=== PATIENT | male | born 1970 | race Caucasian/White ===

== ENCOUNTER 2021-02-13 15:04 | Inpatient (IN) ==
[2021-02-13] MEDS ORDERED: methylPREDNISolone 125 MG/2 ML VIAL IV STA (15:07)
[2021-02-13] MEDS ORDERED: MAGNESIUM SULFATE / D5W 1 GM/100 ML BAG IV STA (15:08)
[2021-02-13] MEDS ORDERED: ALBUT/IPRATROP 3MG/0.5MG NEB 3 ML VIAL NEB ONE (15:09)
[2021-02-13] MEDS ORDERED: ACETAMINOPHEN 1,000 MG/100 ML VIAL IV STA (15:12)
[2021-02-13] MEDS ORDERED: IPRATROPIUM BROMIDE NEB SOLN 0.02% 2.5 ML VIAL INH SCH ×2 (15:15→19:00)
[2021-02-13] MEDS ORDERED: LEVALBUTEROL 1.25MG/0.5ML NEB INH SCH ×2 (15:15→19:00)
[2021-02-13 15:28] LABS: Basophils % (auto) 1.1 %; Eosinophils # (auto) 0.35 K/uL (0-0.5); Eosinophils % (auto) 3.9 %; Hematocrit (blood only) 49.2 % (42-52); Hemoglobin 17.7 g/dL (14.0-18.0); Immature Granulocytes # (auto) 0.03 K/uL (0.00-0.02); Immature Granulocytes % (auto) 0.3 %; Lymphocytes # (auto) 4.44 K/uL (1.2-3.4); Lymphocytes % (auto) 49.7 %; Mean Corpuscular Hemoglobin 31.3 pg (25-34); Mean Corpuscular Volume 86.9 fL (80-100); Mean Platelet Volume 9.9 fL (7.4-10.4); Monocytes % (auto) 4.5 %; Neutrophils # (auto) 3.61 K/uL (1.4-6.5); Neutrophils % (auto) 40.5 %; Platelet Count 411 K/uL (130-400); RDW Standard Deviation 38.1 fL (36.4-46.3); Red Blood Count 5.66 M/uL (4.7-6.1); White Blood Count 8.93 K/uL (4.8-10.8)
[2021-02-13] MEDS ORDERED: levoFLOXacin/D5W 750 MG/150 ML BAG IV STA (15:28)
[2021-02-13] MEDS ORDERED: PIPERACILL/TAZOBAC CONSULT ACTIVE PRN (15:28)
[2021-02-13] MEDS ORDERED: PIPERACILLIN/TAZOBACTAM 4.5 GM in DEXTROSE 5% 100 ML IV ONE (15:28)
[2021-02-13] MEDS ORDERED: PIPERACILLIN/TAZOBACTAM 4.5 GM/120ML D5W IV ONE (15:36)
[2021-02-13 15:44] LABS: Partial Thromboplastin Ratio 0.9; Partial Thromboplastin Time 22.8 Seconds (21.0-31.0)
--- NOTE | 2021-02-13 15:44 | XRay Report ---
XR chest 1V portable CLINICAL HISTORY: Chest Pain COMPARISON STUDY: October 22, 2020 FINDINGS: No pneumothorax. No pleural effusion. Interval development of ill-defined opacity is within right lower lung which might represent atelecta sis or infiltrates. Cardiomediastinal silhouette is within normal limits in size. No significant pulmonary vascular congestion.. Osseous structures: unremarkable. Previous seen osseous deformities within right hemithorax are no l onger seen. IMPRESSION: 1. Ill-defined opacity at the right lower lung which could represent atelectasis or pneumonia. Short -term follow-up with PA and lateral chest radiograph in 4-6 weeks is recommended to document resoluti on. ACT 112: Positive. There are findings on this exam that require communication between the performing entity and the patient following Patient Test Result Information Act ([place] Act 112) guidelines. The above report was generated using voice recognition software. It may contain grammatical, syntax o r spelling errors. Electronically signed by: Daija Rojas DO 02/13/2021 3:43 PM
[2021-02-13 15:52] LABS: Alanine Aminotransferase 25 U/L (12-78); Albumin Level 4.3 gm/dl (3.4-5.0); Aspartate Aminotransferase 17 U/L (15-37); BUN Creatinine Ratio 12.6 (10-20); Blood Urea Nitrogen 19 mg/dl (7-18); Carbon Dioxide 31 mmol/L (21-32); Chloride 103 mmol/L (98-107); Est GFR (African American) 62.5 ml/min; Est GFR (Non-African American) 53.9 ml/min; Glucose 148 mg/dl (70-99); Lipase 208 U/L (73-393); Potassium 3.6 mmol/L (3.5-5.1); Sodium 138 mmol/L (136-145)
[2021-02-13 15:57] LABS: Albumin Globulin Ratio 1.3 (0.9-2); Alkaline Phosphatase 64 U/L (45-117); Bilirubin,Total 0.8 mg/dl (0.2-1); Creatine Kinase 131 U/L (39-308); Creatine Kinase MB 1.3 ng/ml (0.5-3.6); Globulin 3.2 gm/dl (2.5-4.0); Total Protein 7.5 gm/dl (6.4-8.2); Troponin I < 0.015 ng/ml (0-0.045)
[2021-02-13 15:58] LABS: Base Excess ABG -0.9 mEq/L (-9-1.8); HCO3 ABG 26 mmol/L (19-24); Oxygen Saturation ABG 99.7 % (90-95); PCO2 ABG 49 mmHg (35-46); PO2 ABG 249 mmHg (80-95); pH ABG 7.33 (7.35-7.45)
[2021-02-13 15:59] LABS: Allen Test POS (Pos)
[2021-02-13] MEDS ORDERED: SODIUM CHLORIDE 0.9% 1000ML 1,000 ML IV ONE (16:05)
[2021-02-13] MEDS ORDERED: diphenhydrAMINE 50 MG/ML VIAL IV STA (16:49)
[2021-02-13] MEDS ORDERED: FAMOTIDINE 20 MG in SYRINGE 3 ML IV STA (16:49)
[2021-02-13] MEDS ORDERED: FAMOTIDINE 20MG IV PUSH 20 MG/5 ML SYR IV STA (16:51)
[2021-02-13] MEDS ORDERED: FAMOTIDINE 20MG/5ML IV PUSH IV ONE (16:52)
--- NOTE | 2021-02-13 17:06 | History & Physical Report ---
Date of Service February 13, 2021 Assessment & Plan (1) Asthma with severe exacerbation: Given Solu-Medrol 125 mg IV in ED. Solu-Medrol 60 mg IV every 6 hours Duonebs every 4 hours while awake and every 2 hours when necessary. Continue loratadine 10 mg p.o. 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 Wright. His symptoms have worsened considerably since he moved into a new house 2 years ago. Would likely benefit from allergy testing. Have available Benadryl 25 mg IV every 4 hours as needed Present on Admission?: Yes (2) Renal insufficiency: Creatinine 1.50 upon admission. Order urinalysis Placed on NSS at 125 mils per hour Repeat laboratories in a.m. Present on Admission?: Yes (3) Mediastinal lymphadenopathy: Mediastinal and hilar lymphadenopathy on previous CTs- We will order ESR, CRYS, ANCA, HALIE level and if creatinine does not improve significantly, could order anti-GBM. Present on Admission?: Yes (4) Hilar lymphadenopathy: (5) Abnormal CT scan of lung: History of Present Illness Chief Complaint: The patient presents to the emergency department with complaint of worsening shortness of breath for the past several days Primary Care Provider: Patti Cárdenas MD The patient is a 50-year-old male with a past medical history including asthma, abnormal lung CT scan, hearing loss, rhinitis who presents with symptoms of severe shortness of breath not responsive to prednisone. In the emergency department, he was acutely short of breath, was placed on BiPAP initially, but had to take it off because it was too much pressure. After removing the BiPAP and having received Solu-Medrol 125 IV along with DuoNebs, patient was satting in the mid 90s on nasal cannula and more comfortable. Allergies Allergy/AdvReac Type Severity Reaction Status Date / Time No Known Drug Allergies Allergy Verified 01/20/21 13:55 lam Allergy Unknown Rash Uncoded 01/20/21 13:55 Home Medications Medication Instructions Recorded Confirmed Type loratadine 10 mg tablet 10 mg PO DAILY #30 tab 11/11/20 02/13/21 Rx albuterol sulfate 90 mcg/actuation 2 puff INHALATION .COMPLEX PRN 12/12/20 02/13/21 Rx aerosol inhaler #8.5 g ipratropium 20 mcg-albuterol 100 1 puff INHALATION QID PRN #4 g 05/11/21 07/09/21 Rx mcg/actuation mist for inhalation fluticasone propionate 115 2 puff INHALATION BID #12 g 01/20/21 02/13/21 Rx mcg-salmeterol 21 mcg/actuation HFA inhaler Past Med/Surg History Medical History Corneal abrasion Deaf Surgical History S/P wisdom tooth extraction Family History Mother Breast cancer Anemia Uncle Myocardial infarction Father Unknown family medical history Other CHF (congestive heart failure) Denies family history of Colon cancer Ovarian cancer Prostate cancer Social History Smoking Status: Never smoker Second Hand Exposure: No; Hx Alcohol Use: No Hx Substance Use: No Preferred Language: Portuguese Communication Ability: Impaired Communication Ability Comment: severe hearing loss bilat hearing aides in place Visual Impairment: No Limitations Hearing Ability: Use of Hearing Aid 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 Required: No Beliefs That Will Affect Care: None marital status: Current Living Situation: Spouse and Other Current Living Situation Comment: adult children x2 current occupational status: employed 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 Other Information That Helps Us Care for You: Yes Feels Safe at Home: Yes Safety Concerns: Feels Safe At This Time Dental Care, Regularly: Yes Physical Activity Frequency: Daily Assistive Devices: None Review of Systems Review of Systems: The patient denies chest pain, palpitations, cough, lower extremity swelling, sore throat, fevers, chills, sweats, weight change, fatigue, nausea, vomiting, diarrhea , constipation, abdominal pain, pelvic pain, blood in urine or stool, dysuria, urinary frequency or urgency, lightheadedness, dizziness, headache, memory loss, loss of consciousness, rash, abnormal bruising or bleeding, imbalance, focal or generalized weakness, numbness or tingling in arms or legs, generalized arthralgias or myalgias, back or neck pain, or night sweats. The review of systems is otherwise negative other than for that already noted above, and at least 10 systems have been reviewed. Physical Exam Physical Exam: The patient is awake, alert and oriented 3, well developed and well nourished, normocephalic and atraumatic, lying in bed and in mild acute respiratory distress. HEENT--PERRL, EOMI, mucous membranes and oropharynx dry. Neck--supple. No JVD. No bruits. Thyroid normal, trachea midline, no adenopathy. Heart--normal S1 and S2. No murmurs, rubs or gallops. Lungs--lungs are very tight, with poor air movement Abdomen--normal bowel sounds and soft. Nontender. Nondistended, no hernias or masses, no organomegaly. Extremities--no cyanosis or clubbing. No edema. There are good distal pulses b/l. Dermatologic--normal skin turgor, normal color, no abnormal lymph nodes, no rash. Neurologic--cranial nerves II through XII grossly intact. Rheumatologic--normal range of motion. Psychiatric--normal affect. Results & Data Results & Data ([facility]) Vital Signs (Past 12 Hours) Vital Signs Temp Pulse Pulse Resp BP BP Pulse Ox 02/13/21 17:04 106 H 15 116/82 98 02/13/21 16:31 112 H 129/73 96 02/13/21 16:01 118 H 147/116 H 100 02/13/21 15:34 113 H 22 99 02/13/21 15:30 108 H 22 132/106 H 99 02/13/21 15:15 97 02/13/21 15:10 97.0 F L 118 H 30 H 166/134 H 74 L 02/13/21 15:08 108 H 166/134 H 97 Laboratory Results Laboratory Results WBC 8.93 K/uL (4.8-10.8) 02/13/21 15:15 RBC 5.66 M/uL (4.7-6.1) 02/13/21 15:15 Hgb 17.7 g/dL (14.0-18.0) 02/13/21 15:15 Hct 49.2 % (42-52) 02/13/21 15:15 MCV 86.9 fL (80-100) 02/13/21 15:15 MCH 31.3 pg (25-34) 02/13/21 15:15 MCHC 36.0 g/dL (32-36) 02/13/21 15:15 RDW Std Deviation 38.1 fL (36.4-46.3) 02/13/21 15:15 RDW Coeff of Patricia 12.0 % (11.5-14.5) 02/13/21 15:15 Plt Count 411 K/uL (130-400) H 02/13/21 15:15 MPV 9.9 fL (7.4-10.4) 02/13/21 15:15 Immature Gran % (Auto) 0.3 % 02/13/21 15:15 Neut % (Auto) 40.5 % 02/13/21 15:15 Lymph % (Auto) 49.7 % 02/13/21 15:15 Knox % (Auto) 4.5 % 02/13/21 15:15 Eos % (Auto) 3.9 % 02/13/21 15:15 Baso % (Auto) 1.1 % 02/13/21 15:15 Neut # (Auto) 3.61 K/uL (1.4-6.5) 02/13/21 15:15 Lymph # (Auto) 4.44 K/uL (1.2-3.4) H 02/13/21 15:15 Knox # (Auto) 0.40 K/uL (0.11-0.59) 02/13/21 15:15 Eos # (Auto) 0.35 K/uL (0-0.5) 02/13/21 15:15 Baso # (Auto) 0.10 K/uL (0-0.2) 02/13/21 15:15 Immature Gran # (Auto) 0.03 K/uL (0.00-0.02) H 02/13/21 15:15 ESR 7 mm/hr (0-15) 02/13/21 15:15 APTT 22.8 Seconds (21.0-31.0) 02/13/21 15:15 PTT Ratio 0.9 02/13/21 15:15 ABG pH 7.33 (7.35-7.45) L 02/13/21 15:43 ABG pCO2 49 mmHg (35-46) H 02/13/21 15:43 ABG pO2 249 mmHg (80-95) H 02/13/21 15:43 ABG HCO3 26 mmol/L (19-24) H 02/13/21 15:43 ABG O2 Saturation 99.7 % (90-95) H 02/13/21 15:43 ABG Base Excess -0.9 mEq/L (-9-1.8) 02/13/21 15:43 Pk Test POS (Pos) 02/13/21 15:43 Barometric Pressure 729.1 mm/Hg 02/13/21 15:43 Oxygen Given 50% FiO2 02/13/21 15:43 Sodium 138 mmol/L (136-145) 02/13/21 15:15 Potassium 3.6 mmol/L (3.5-5.1) 02/13/21 15:15 Chloride 103 mmol/L (98-107) 02/13/21 15:15 Carbon Dioxide 31 mmol/L (21-32) 02/13/21 15:15 Anion Gap 4.0 (3-11) 02/13/21 15:15 BUN 19 mg/dl (7-18) H 02/13/21 15:15 Creatinine 1.50 mg/dl (0.6-1.4) H 02/13/21 15:15 Est Cr Clr Drug Dosing Not Reportable 02/13/21 15:15 Est GFR ( Amer) 62.5 ml/min 02/13/21 15:15 Est GFR (Non-Af Amer) 53.9 ml/min 02/13/21 15:15 BUN/Creatinine Ratio 12.6 (10-20) 02/13/21 15:15 Glucose 148 mg/dl (70-99) H 02/13/21 15:15 Calcium 9.0 mg/dl (8.5-10.1) 02/13/21 15:15 Total Bilirubin 0.8 mg/dl (0.2-1) 02/13/21 15:15 AST 17 U/L (15-37) 02/13/21 15:15 ALT 25 U/L (12-78) 02/13/21 15:15 Alkaline Phosphatase 64 U/L (45-117) 02/13/21 15:15 Total Creatine Kinase 131 U/L (39-308) 02/13/21 15:15 CK-MB (CK-2) 1.3 ng/ml (0.5-3.6) 02/13/21 15:15 CK/CKMB % Calc 1.0 (0-3.0) 02/13/21 15:15 Troponin I < 0.015 ng/ml (0-0.045) 02/13/21 15:15 Total Protein 7.5 gm/dl (6.4-8.2) 02/13/21 15:15 Albumin 4.3 gm/dl (3.4-5.0) 02/13/21 15:15 Globulin 3.2 gm/dl (2.5-4.0) 02/13/21 15:15 Albumin/Globulin Ratio 1.3 (0.9-2) 02/13/21 15:15 Lipase 208 U/L (73-393) 02/13/21 15:15 COVID-19 Eval Order Covid19 at [facility] 02/13/21 15:15 SARS-CoV-2 (PCR) NEGATIVE (Negative) 02/13/21 15:15 Impressions Chest X-Ray 02/13/21 15:07 XR chest 1V portable CLINICAL HISTORY: Chest Pain COMPARISON STUDY: October 22, 2020 FINDINGS: No pneumothorax. No pleural effusion. Interval development of ill-defined opacity is within right lower lung which might represent atelectasis or infiltrates. Cardiomediastinal silhouette is within normal limits in size. No significant pulmonary vascular congestion.. Osseous structures: unremarkable. Previous seen osseous deformities within right hemithorax are no longer seen. IMPRESSION: 1. Ill-defined opacity at the right lower lung which could represent atelectasis or pneumonia. Short-term follow-up with PA and lateral chest radiograph in 4-6 weeks is recommended to document resolution. ACT 112: Positive. There are findings on this exam that require communication between the performing entity and the patient following Patient Test Result Information Act ([place] Act 112) guidelines. The above report was generated using voice recognition software. It may contain grammatical, syntax or spelling errors. Electronically signed by: Daija Rojas DO 02/13/2021 3:43 PM Chest CTA 02/13/21 16:25 CT angio chest PE protocol CT DOSE: 371.83 mGy.cm HISTORY: 50 years-old Male with PE. Acute shortness of breath with asthma TECHNIQUE: Multiple CTA images of the chest were obtained after the intravenous administration of 120 ml Optiray. Coronal and sagittal MIPS were obtained from the axial data set and were submitted for review. All measurements were obtained according to NASCET criteria. A dose lowering technique was utilized adhering to the principles of ALARA. COMPARISON: Chest radiograph of same day, chest CT 12/19/2020 FINDINGS: CTA: The heart is normal in size. No pericardial effusion. No thoracic aortic aneurysm or dissection. There is limited evaluation of the pulmonary artery secondary to contrast bolus timing. No pulmonary emboli identified. CT CHEST: Unremarkable thyroid. Prominent and mildly enlarged mediastinal and hilar lymph nodes are unchanged from comparison with subcarinal 10 mm lymph node unchanged. There is no new or progressive adenopathy identified. No pneumothorax, pleural effusion or overt pulmonary edema. Mild bilateral bronchial wall thickening. Small left Bochdalek hernia. Linear subsegmental consolidation with groundglass opacities of the inferior segment lingula and right middle lobe. There are no suspicious pulmonary nodules or masses. Mild tracheobronchial secretions. No acute process of the imaged upper abdomen. Unremarkable soft tissues. No acute fracture. Healed chronic right-sided rib fractures. IMPRESSION: 1. Bronchial wall thickening suggestive of bronchitis or reactive airway dise ase. Mild associated tracheobronchial secretions. 2. No pulmonary emboli. 3. Subsegmental right middle lobe and lingular opacities favor atelectasis. 4. Unchanged likely benign mediastinal and hilar adenopathy 5. No pleural effusion. ACT 112: Negative or not required by law. The above report was generated using voice recognition software. It may contain grammatical, syntax or spelling errors. Electronically signed by: Bill Mujica M.D. 02/13/2021 6:37 PM Code Status & VTE Plan Code Status Full code VTE Prophylaxis Plan VTE Prophylaxis will be ordered: Yes PG Care Time/CCT Total # of Minutes Spent Total Time Spent with Patient: Total time spent is greater than 50% in coordination of care (as documented) at patient's floor/unit and/or counseling patient: Coding Level of Care Code 35065 Initial Inpt Care Lvl 2 Diagnoses Asthma with severe exacerbation J45.901 Renal insufficiency N28.9 Mediastinal lymphadenopathy R59.0 Hilar lymphadenopathy R59.[address] scan of lung R91.8
--- NOTE | 2021-02-13 17:57 | Emergency Department Note ---
Impression & Plan Acute respiratory failure with hypercapnia ED Provider Note NAME: FABRICE DARNELL III AGE: 50 SEX: M : 1970 ARRIVES VIA: Walk-In INFORMANT: Patient, ED PROVIDER(S): Toribio Robles MD CHIEF COMPLAINT: SOB HPI: This is a 50-year-old male with a history of asthma who presents to the emergency department complaining of shortness of breath that has been ongoing for the past several days. The patient was recently placed on prednisone for his asthma however this is progressed to the point today where he can hardly talk because he is extremely short of breath. The patient reports any type of exertion makes his shortness of breath much worse. Rest helps somewhat. He did multiple breathing treatments prior to arrival in the emergency department without any relief. ROS: See above HPI for pertinent positives & negatives. A total of 10 systems reviewed and were otherwise negative. PAST MEDICAL HISTORY: See Below PAST SURGICAL HISTORY: See Below FAMILY HISTORY: See Below SOCIAL HISTORY: See Below HOME MEDICATIONS: See Below ALLERGIES: See Below VITALS: See Below PHYSICAL EXAMINATION: VITAL SIGNS - Vital signs and nursing notes were reviewed. GENERAL - 50-year-old male appearing stated age who is in no acute distress. Communicates well with provider and answers questions appropriately. SKIN - Without rashes. HEAD - NC/AT. EYES - PERRL with EOMI bilaterally. Sclera anicteric. Palpebral conjunctiva pink and moist with no injection noted. EARS - No deformities of external structures noted on gross examination bilaterally. NOSE - Midline and without cyanosis. No epistaxis or purulent drainage noted. Septum midline without deviation or septal hematoma noted. MOUTH/OROPHARYNX - Without perioral cyanosis. Buccal mucosa pink and moist and without leukoplakia. Tongue midline with equal elevation of palate bilaterally. No tonsillar hypertrophy, erythema, or exudates noted. NECK - Neck with FROM. Supple to palpation. No nuchal rigidity. LUNGS - Chest wall symmetric without accessory muscle use, intercostals retractions, or central cyanosis. Normal vesicular breath sounds CTA B/L. No wheezes, rales, or rhonchi appreciated. CARDIAC - RRR with S1/S2. No murmur, rubs, or gallops appreciated. ABDOMEN - Abdominal contour. BS normoactive all four quadrants. No tenderness, palpable masses, hepatosplenomegaly, or ascites noted. EXTREMITIES - No clubbing or peripheral cyanosis. No pretibial edema present. +3/5 radial, posterior tibial, and dorsalis pedis pulses palpated throughout. +5/5 strength noted in UE/LE bilaterally. NEUROLOGIC - Cranial nerves II through XII grossly intact. Sensory intact to light touch throughout. Patellar reflexes +2/4. PSYCH - A&Ox3 and cooperates fully with examiner. Pt is very pleasant and interacts well with examiner. MEDICAL DECISION MAKING: Patient was seen and evaluated as above in room A1. Review was performed of nursing notes and vital signs. I did review pertinent previous visits and patient history. After obtaining a thorough history and physical examination the above work up was performed. This 50-year-old male who presents emergency department in acute distress. The patient was placed immediately on BiPAP given Solu-Medrol magnesium and an hour- long breathing treatment. He does have an elevation in his white blood cell count therefore was started on broad-spectrum antibiotics including Zosyn. He does not have an elevation in his troponin. Based on all these findings I do feel the patient needs to be admitted to the hospitalist. I did discuss the case with the hospitalist service who did agree to admit the patient. An order was placed for continuous cardiac monitoring. The monitor shows a rate of 122 with Sinus Tach rhythm. The patient was evaluated during a period of high volume and high acuity during the global COVID-19 pandemic, and that diagnosis was suspected/considered upon their initial presentation. Their evaluation, treatment and testing was consistent with current guidelines for patients who present with complaints or symptoms that may be related to COVID-19. Patient was seen while provider was wearing PPE. Triage Nursing notes reviewed. Prior medical records reviewed Vital Signs: reviewed and remarkable for tachycardia, hypoxia Differential diagnosis: Reactive airway disease, pneumonia, pneumothorax, COPD, CHF, infections, cardiac ischemia, pulmonary embolism, musculoskeletal, gastrointestinal, as well as other pathologies. ER treatment provided: See below Diagnostics interpreted by me: ECG: EKG shows sinus tachycardia left axis deviation junctional ST depression QTC is 49 ventricular rate is 115, EKG compared to 08/01/2020 no significant changes found Laboratory studies: As stated above and show below. Imaging studies: See below Consultation(s): Internal Medicine Critical Care: I have personally spent greater than 30 minutes of critical care time in the direct management of this patient. This includes bedside care, interpretation of diagnostic studies, and testing, discussion with consultants, patient, and family members, and other required patient management activities. This 30 minutes is in excess of all separately billable procedures. Past Med/Surg History Medical History (Updated 02/14/21 @ 19:48 by Toribio Robles MD) Corneal abrasion Deaf Hilar lymphadenopathy Mediastinal lymphadenopathy Surgical History S/P wisdom tooth extraction Family History Mother Breast cancer Anemia Uncle Myocardial infarction Father Unknown family medical history Other CHF (congestive heart failure) Denies family history of Colon cancer Ovarian cancer Prostate cancer Social History Smoking Status: Never smoker Second Hand Exposure: No; Hx Alcohol Use: No Hx Substance Use: No Preferred Language: Serbian Communication Ability: Impaired Visual Impairment: No Limitations Hearing Ability: Use of Hearing Aid Auto [place] Required: No Beliefs That Will Affect Care: None marital status: Current Living Situation: Spouse and Other Current Living Situation Comment: adult children x2 current occupational status: employed 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 Feels Safe at Home: Yes Dental Care, Regularly: Yes Physical Activity Frequency: Daily Assistive Devices: Glasses Allergies Allergies Allergy/AdvReac Type Severity Reaction Status Date / Time No Known Drug Allergies Allergy Verified 01/20/21 13:55 lam Allergy Unknown Rash Uncoded 01/20/21 13:55 Home Meds Previous Rx's Medication Instructions Recorded loratadine 10 mg tablet 10 mg PO DAILY #30 tab 11/11/20 albuterol sulfate 90 mcg/actuation 2 puff INHALATION .COMPLEX PRN 12/12/20 aerosol inhaler #8.5 g ipratropium 20 mcg-albuterol 100 1 puff INHALATION QID PRN #4 g 12/16/20 mcg/actuation mist for inhalation fluticasone propionate 115 2 puff INHALATION BID #12 g 01/20/21 mcg-salmeterol 21 mcg/actuation HFA inhaler Results & Data (ED) Vital Signs Vital Signs - 24 hr 02/13/21 15:08 02/13/21 15:10 02/13/21 15:15 Temperature 36.1 C L Temperature Source Axillary Pulse Rate 108 H 118 H Pulse Rate [Apical] Pulse Rate from SpO2 Sensor 107 H Respiratory Rate 30 H Respiratory Effort / Characteristics Spontaneous Grunting Labored Short of Breath Tripoding Respiratory Depth Respiratory Pattern Tachypnea Blood Pressure 166/134 H 166/134 H Blood Pressure [Right Arm] Blood Pressure Mean 144 144 Blood Pressure Mean [Right Arm] Pulse Oximetry 97 74 L 97 Oxygen Delivery Method Room Air BiPAP Oxygen Flow Rate Fraction of Inspired Oxygen Sepsis Recent Fever Within 48 Hours No Sepsis New/Unexplained Change in Mental Status No Sepsis Action Taken by Nursing Physician Notified 02/13/21 15:21 02/13/21 15:30 02/13/21 15:34 Temperature Temperature Source Pulse Rate 108 H Pulse Rate [Apical] 113 H Pulse Rate from SpO2 Sensor 108 H Respiratory Rate 22 22 Respiratory Effort / Characteristics Spontaneous Accessory Muscle Use Gasping/Agonal Grunting Labored Short of Breath Tripoding Spontaneous Accessory Muscle Use Labored Short of Breath Spontaneous Accessory Muscle Use Labored Short of Breath Respiratory Depth Shallow Deep Respiratory Pattern Tachypnea Regular Blood Pressure 132/106 H Blood Pressure [Right Arm] Blood Pressure Mean 114 Blood Pressure Mean [Right Arm] Pulse Oximetry 99 99 Oxygen Delivery Method BiPAP Oxygen Flow Rate Fraction of Inspired Oxygen 50 50 Sepsis Recent Fever Within 48 Hours Sepsis New/Unexplained Change in Mental Status Sepsis Action Taken by Nursing 02/13/21 16:01 02/13/21 16:31 02/13/21 17:04 Temperature Temperature Source Pulse Rate 118 H 112 H Pulse Rate [Apical] 106 H Pulse Rate from SpO2 Sensor 118 H 110 H Respiratory Rate 15 Respiratory Effort / Characteristics Non-Labored Spontaneous Short of Breath Respiratory Depth Normal Respiratory Pattern Regular Blood Pressure 147/116 H 129/73 Blood Pressure [Right Arm] 116/82 Blood Pressure Mean 126 91 Blood Pressure Mean [Right Arm] 93 Pulse Oximetry 100 96 98 Oxygen Delivery Method Aerosol Mask Nasal Cannula Oxygen Flow Rate 10 2 Fraction of Inspired Oxygen Sepsis Recent Fever Within 48 Hours Sepsis New/Unexplained Change in Mental Status Sepsis Action Taken by Nursing 02/13/21 17:43 Temperature Temperature Source Pulse Rate Pulse Rate [Apical] Pulse Rate from SpO2 Sensor Respiratory Rate Respiratory Effort / Characteristics Respiratory Depth Respiratory Pattern Blood Pressure Blood Pressure [Right Arm] Blood Pressure Mean Blood Pressure Mean [Right Arm] Pulse Oximetry Oxygen Delivery Method Nasal Cannula Oxygen Flow Rate Fraction of Inspired Oxygen Sepsis Recent Fever Within 48 Hours Sepsis New/Unexplained Change in Mental Status Sepsis Action Taken by Intermediate Medications Current Medication List: was personally reviewed by me Laboratory Data Attestation: I reviewed the patient's lab results. Result diagrams: 02/14/21 05:34 02/14/21 05:34 Lab Results 02/13/21 02/13/21 02/13/21 Range/Units 15:15 15:15 15:15 WBC 8.93 (4.8-10.8) K/uL RBC 5.66 (4.7-6.1) M/uL Hgb 17.7 (14.0-18.0) g/dL Hct 49.2 (42-52) % MCV 86.9 (80-100) fL MCH 31.3 (25-34) pg MCHC 36.0 (32-36) g/dL RDW Std Deviation 38.1 (36.4-46.3) fL RDW Coeff of Patricia 12.0 (11.5-14.5) % Plt Count 411 H (130-400) K/uL MPV 9.9 (7.4-10.4) fL Immature Gran % (Auto) 0.3 % Neut % (Auto) 40.5 % Lymph % (Auto) 49.7 % [place] % (Auto) 4.5 % Eos % (Auto) 3.9 % Baso % (Auto) 1.1 % Neut # (Auto) 3.61 (1.4-6.5) K/uL Lymph # (Auto) 4.44 H (1.2-3.4) K/uL [place] # (Auto) 0.40 (0.11-0.59) K/uL Eos # (Auto) 0.35 (0-0.5) K/uL Baso # (Auto) 0.10 (0-0.2) K/uL Immature Gran # (Auto) 0.03 H (0.00-0.02) K/uL ESR (0-15) mm/hr APTT 22.8 (21.0-31.0) Seconds PTT Ratio 0.9 ABG pH (7.35-7.45) ABG pCO2 (35-46) mmHg ABG pO2 (80-95) mmHg ABG HCO3 (19-24) mmol/L ABG O2 Saturation (90-95) % ABG Base Excess (-9-1.8) mEq/L Pk Test (Pos) Barometric Pressure mm/Hg Oxygen Given Sodium 138 (136-145) mmol/L Potassium 3.6 (3.5-5.1) mmol/L Chloride 103 (98-107) mmol/L Carbon Dioxide 31 (21-32) mmol/L Anion Gap 4.0 (3-11) BUN 19 H (7-18) mg/dl Creatinine 1.50 H (0.6-1.4) mg/dl Est Cr Clr Drug Dosing Not Reportable Est GFR ( Amer) 62.5 ml/min Est GFR (Non-Af Amer) 53.9 ml/min BUN/Creatinine Ratio 12.6 (10-20) Glucose 148 H (70-99) mg/dl Calcium 9.0 (8.5-10.1) mg/dl Total Bilirubin 0.8 (0.2-1) mg/dl AST 17 (15-37) U/L ALT 25 (12-78) U/L Alkaline Phosphatase 64 (45-117) U/L Total Creatine Kinase 131 (39-308) U/L CK-MB (CK-2) 1.3 (0.5-3.6) ng/ml CK/CKMB % Calc 1.0 (0-3.0) Troponin I < 0.015 (0-0.045) ng/ml Total Protein 7.5 (6.4-8.2) gm/dl Albumin 4.3 (3.4-5.0) gm/dl Globulin 3.2 (2.5-4.0) gm/dl Albumin/Globulin Ratio 1.3 (0.9-2) Lipase 208 (73-393) U/L COVID-19 Eval Order SARS-CoV-2 (PCR) (Negative) 02/13/21 02/13/21 02/13/21 Range/Units 15:15 15:15 15:15 WBC (4.8-10.8) K/uL RBC (4.7-6.1) M/uL Hgb (14.0-18.0) g/dL Hct (42-52) % MCV (80-100) fL MCH (25-34) pg MCHC (32-36) g/dL RDW Std Deviation (36.4-46.3) fL RDW Coeff of Patricia (11.5-14.5) % Plt Count (130-400) K/uL MPV (7.4-10.4) fL Immature Gran % (Auto) % Neut % (Auto) % Lymph % (Auto) % [place] % (Auto) % Eos % (Auto) % Baso % (Auto) % Neut # (Auto) (1.4-6.5) K/uL Lymph # (Auto) (1.2-3.4) K/uL [place] # (Auto) (0.11-0.59) K/uL Eos # (Auto) (0-0.5) K/uL Baso # (Auto) (0-0.2) K/uL Immature Gran # (Auto) (0.00-0.02) K/uL ESR 7 (0-15) mm/hr APTT (21.0-31.0) Seconds PTT Ratio ABG pH (7.35-7.45) ABG pCO2 (35-46) mmHg ABG pO2 (80-95) mmHg ABG HCO3 (19-24) mmol/L ABG O2 Saturation (90-95) % ABG Base Excess (-9-1.8) mEq/L Pk Test (Pos) Barometric Pressure mm/Hg Oxygen Given Sodium (136-145) mmol/L Potassium (3.5-5.1) mmol/L Chloride (98-107) mmol/L Carbon Dioxide (21-32) mmol/L Anion Gap (3-11) BUN (7-18) mg/dl Creatinine (0.6-1.4) mg/dl Est Cr Clr Drug Dosing Est GFR ( Amer) ml/min Est GFR (Non-Af Amer) ml/min BUN/Creatinine Ratio (10-20) Glucose (70-99) mg/dl Calcium (8.5-10.1) mg/dl Total Bilirubin (0.2-1) mg/dl AST (15-37) U/L ALT (12-78) U/L Alkaline Phosphatase (45-117) U/L Total Creatine Kinase (39-308) U/L CK-MB (CK-2) (0.5-3.6) ng/ml CK/CKMB % Calc (0-3.0) Troponin I (0-0.045) ng/ml Total Protein (6.4-8.2) gm/dl Albumin (3.4-5.0) gm/dl Globulin (2.5-4.0) gm/dl Albumin/Globulin Ratio (0.9-2) Lipase (73-393) U/L COVID-19 Eval Order Covid19 at [facility] SARS-CoV-2 (PCR) NEGATIVE (Negative) 02/13/21 Range/Units 15:43 WBC (4.8-10.8) K/uL RBC (4.7-6.1) M/uL Hgb (14.0-18.0) g/dL Hct (42-52) % MCV (80-100) fL MCH (25-34) pg MCHC (32-36) g/dL RDW Std Deviation (36.4-46.3) fL RDW Coeff of Patricia (11.5-14.5) % Plt Count (130-400) K/uL MPV (7.4-10.4) fL Immature Gran % (Auto) % Neut % (Auto) % Lymph % (Auto) % [place] % (Auto) % Eos % (Auto) % Baso % (Auto) % Neut # (Auto) (1.4-6.5) K/uL Lymph # (Auto) (1.2-3.4) K/uL [place] # (Auto) (0.11-0.59) K/uL Eos # (Auto) (0-0.5) K/uL Baso # (Auto) (0-0.2) K/uL Immature Gran # (Auto) (0.00-0.02) K/uL ESR (0-15) mm/hr APTT (21.0-31.0) Seconds PTT Ratio ABG pH 7.33 L (7.35-7.45) ABG pCO2 49 H (35-46) mmHg ABG pO2 249 H (80-95) mmHg ABG HCO3 26 H (19-24) mmol/L ABG O2 Saturation 99.7 H (90-95) % ABG Base Excess -0.9 (-9-1.8) mEq/L Pk Test POS (Pos) Barometric Pressure 729.1 mm/Hg Oxygen Given 50% FiO2 Sodium (136-145) mmol/L Potassium (3.5-5.1) mmol/L Chloride (98-107) mmol/L Carbon Dioxide (21-32) mmol/L Anion Gap (3-11) BUN (7-18) mg/dl Creatinine (0.6-1.4) mg/dl Est Cr Clr Drug Dosing Est GFR ( Amer) ml/min Est GFR (Non-Af Amer) ml/min BUN/Creatinine Ratio (10-20) Glucose (70-99) mg/dl Calcium (8.5-10.1) mg/dl Total Bilirubin (0.2-1) mg/dl AST (15-37) U/L ALT (12-78) U/L Alkaline Phosphatase (45-117) U/L Total Creatine Kinase (39-308) U/L CK-MB (CK-2) (0.5-3.6) ng/ml CK/CKMB % Calc (0-3.0) Troponin I (0-0.045) ng/ml Total Protein (6.4-8.2) gm/dl Albumin (3.4-5.0) gm/dl Globulin (2.5-4.0) gm/dl Albumin/Globulin Ratio (0.9-2) Lipase (73-393) U/L COVID-19 Eval Order SARS-CoV-2 (PCR) (Negative) Administered Medications Ipratropium [place] (Ipratropium [place] Neb Soln 0.02% 2.5 Ml Vial) 0.5 mg INH Q8R [facility] Stop: 03/16/21 14:59 Last Admin: 02/14/21 15:32 Dose: 0.5 mg Documented by: [id number] Levalbuterol HCl (Levalbuterol Hcl 0.63 Mg/3 Ml Neb) 0.63 mg NEB Q8R BAILEE Stop: 03/16/21 14:59 Last Admin: 02/14/21 15:32 Dose: 0.63 mg Documented by: [id number] Loratadine (Loratadine 10 Mg Tab) 10 mg PO DAILY [facility] Stop: 03/16/21 08:59 Last Admin: 02/14/21 07:55 Dose: 10 mg Documented by: [id number] Discontinued Medications Albuterol (Albut/Ipratrop 3mg/0.5mg Neb 3 Ml Vial) 12 ml NEB ONE ONE Stop: 02/13/21 15:10 Last Admin: 02/13/21 15:22 Dose: 12 ml Documented by: [id number] Albuterol (Albut/Ipratrop 3mg/0.5mg Neb 3 Ml Vial) 3 ml NEB QIDR BAILEE Stop: 03/16/21 06:59 Last Admin: 02/14/21 11:52 Dose: 3 ml Documented by: [id number] Admin: 02/14/21 07:34 Dose: 3 ml Documented by: [id number] Diphenhydramine HCl (Diphenhydramine 50 Mg/Ml Vial) 25 mg IV NOW STA Stop: 02/13/21 16:50 Last Admin: 02/13/21 16:54 Dose: 25 mg Documented by: [id number] Famotidine (Famotidine 20mg/5ml Iv Push) Confirm Administered Dose 20 mg IV .STK-MED ONE Stop: 02/13/21 16:53 Last Admin: 02/13/21 16:55 Dose: Not Given Documented by: [id number] Magnesium Sulfate/Dextrose (Magnesium Sulfate / D5w) 1 gm in 100 mls @ 300 mls/hr IV NOW STA Stop: 02/13/21 15:27 Last Infusion: 02/13/21 15:46 Dose: 0 mls/hr Documented by: [id number] Admin: 02/13/21 15:25 Dose: 300 mls/hr Documented by: [id number] Acetaminophen (Ofirmev) 1,000 mg in 100 mls @ 400 mls/hr IV NOW STA Stop: 02/13/21 15:26 Last Infusion: 02/13/21 15:46 Dose: 0 mls/hr Documented by: [id number] Admin: 02/13/21 15:25 Dose: 400 mls/hr Documented by: [id number] Piperacillin Sod/Tazobactam (Sod 4.5 gm/ Dextrose) 120 mls @ 200 mls/hr IV NOW ONE Stop: 02/13/21 16:03 Last Infusion: 02/13/21 16:14 Dose: 0 mls/hr Documented by: [id number] Admin: 02/13/21 15:37 Dose: 200 mls/hr Documented by: [id number] Levofloxacin/Dextrose (Levaquin/D5w) 750 mg in 150 mls @ 100 mls/hr IV NOW STA Stop: 02/13/21 16:57 Last Infusion: 02/13/21 17:07 Dose: 0 mls/hr Documented by: [id number] Admin: 02/13/21 15:35 Dose: 100 mls/hr Documented by: [id number] Sodium Chloride (Nss 1000ml) 1,000 mls @ 999 mls/hr IV .Q1H1M ONE Stop: 02/13/21 17:05 Last Infusion: 02/13/21 17:07 Dose: 0 mls/hr Documented by: [id number] Admin: 02/13/21 16:08 Dose: 999 mls/hr Documented by: [id number] Famotidine (Pepcid 20mg Iv Push) 20 mg in 5 mls @ 2.5 mls/min IV NOW STA Stop: 02/13/21 16:52 Last Admin: 02/13/21 16:54 Dose: 2.5 mls/min Documented by: [id number] Sodium Chloride (Nss 1000ml) 1,000 mls @ 100 mls/hr IV .Q10H BAILEE Stop: 03/15/21 18:44 Last Infusion: 02/14/21 11:30 Dose: 0 mls/hr Documented by: [id number] Admin: 02/14/21 06:02 Dose: 100 mls/hr Documented by: [id number] Infusion: 02/14/21 05:02 Dose: 100 mls/hr Documented by: [id number] Admin: 02/13/21 19:02 Dose: 100 mls/hr Documented by: [id number] Methylprednisolone 60 mg/ (Syringe) 0.96 mls @ 1.5 mls/min IV Q6H BAILEE Stop: 03/15/21 19:59 Last Admin: 02/14/21 07:55 Dose: 1.5 mls/min Documented by: [id number] Admin: 02/14/21 01:30 Dose: 1.5 mls/min Documented by: [id number] Admin: 02/13/21 20:15 Dose: 1.5 mls/min Documented by: [id number] Azithromycin 500 mg/ Dextrose 255 mls @ 125 mls/hr IV DAILY BAILEE Stop: 02/20/21 19:59 Last Infusion: 02/14/21 10:01 Dose: 0 mls/hr Documented by: [id number] Admin: 02/14/21 07:55 Dose: 125 mls/hr Documented by: [id number] Infusion: 02/13/21 22:21 Dose: 0 mls/hr Documented by: [id number] Admin: 02/13/21 20:15 Dose: 125 mls/hr Documented by: [id number] Ioversol (Optiray 320 100ml) 120 ml IV ONCE ONE Stop: 02/13/21 18:14 Last Admin: 02/13/21 18:14 Dose: 120 ml Documented by: [id number] Ipratropium [place] (Ipratropium [place] Neb Soln 0.02% 2.5 Ml Vial) 0.5 mg INH Q6R BAILEE Stop: 03/15/21 18:59 Last Admin: 02/13/21 19:08 Dose: 0.5 mg Documented by: [id number] Levalbuterol HCl (Levalbuterol 1.25mg/0.5ml Neb) 1.25 mg INH Q6R BAILEE Stop: 03/15/21 18:59 Last Admin: 02/13/21 19:08 Dose: 1.25 mg Documented by: [id number] Menthol (Cough Drop (Sugar Free) Kaia 24 Kaia/1 Box) Confirm Administered Dose 24 kaia BUCCAL .STK-MED ONE Stop: 02/14/21 19:18 Last Admin: 02/14/21 19:18 Dose: 24 kaia Documented by: [id number] Methylprednisolone (Methylprednisolone 125 Mg/2 Ml Vial) 125 mg IV NOW STA Stop: 02/13/21 15:08 Last Admin: 02/13/21 15:25 Dose: 125 mg Documented by: [id number] Piperacillin Sod/Tazobactam Sod (Piperacillin/Tazobactam 4.5 Gm/120ml D5w) Confirm Administered Dose 4.5 gm IV .STK-MED ONE Stop: 02/13/21 15:37 Last Admin: 02/13/21 15:39 Dose: Not Given Documented by: [id number] Imaging Data Attestation: I personally reviewed and interpreted this imaging study as follows: Radiologist's Impression: Chest X-Ray 02/13/21 15:07 XR chest 1V portable CLINICAL HISTORY: Chest Pain COMPARISON STUDY: October 22, 2020 FINDINGS: No pneumothorax. No pleural effusion. Interval development of ill-defined opacity is within right lower lung which might represent atelectasis or infiltrates. Cardiomediastinal silhouette is within normal limits in size. No significant pulmonary vascular congestion.. Osseous structures: unremarkable. Previous seen osseous deformities within right hemithorax are no longer seen. IMPRESSION: 1. Ill-defined opacity at the right lower lung which could represent atelectasis or pneumonia. Short-term follow-up with PA and lateral chest radiograph in 4-6 weeks is recommended to document resolution. ACT 112: Positive. There are findings on this exam that require communication between the performing entity and the patient following Patient Test Result Information Act ([place] Act 112) guidelines. The above report was generated using voice recognition software. It may contain grammatical, syntax or spelling errors. Electronically signed by: Daija Rojas DO 02/13/2021 3:43 PM Discharge Plan Visit Data Chief Complaint: Asthma Stated Complaint: SEVERE ASTHMA ATTACK ED Provider: Toribio Robles Discharge Problem: Acute respiratory failure with hypercapnia Patient Disposition: Admitted As Inpatient Discharge Instructions Interventions: ED Discharge Assessment Last Done: 02/13/21 17:43
[2021-02-13] MEDS ORDERED: OPTIRAY 320 100ml IV ONE (18:13)
[2021-02-13] MEDS ORDERED: ONDANSETRON INJ 2 MG/ML 2 ML VIAL IV PRN (18:31)
[2021-02-13] MEDS ORDERED: ACETAMINOPHEN 325 MG TAB PO PRN (18:31)
--- NOTE | 2021-02-13 18:38 | CT Scan Report ---
CT angio chest PE protocol CT DOSE: 371.83 mGy.cm HISTORY: 50 years-old Male with PE. Acute shortness of breath with asthma TECHNIQUE: Multiple CTA images of the chest were obtained after the intravenous administration of 120 ml Optiray. Coronal and sagittal MIPS were obtained from the axial data set and were submitted for review. All measurements were obtained according to NASCET criteria. A dose lowering technique was u tilized adhering to the principles of ALARA. COMPARISON: Chest radiograph of same day, chest CT 12/19/2020 FINDINGS: CTA: The heart is normal in size. No pericardial effusion. No thoracic aortic aneurysm or dissection. Ther e is limited evaluation of the pulmonary artery secondary to contrast bolus timing. No pulmonary embo li identified. CT CHEST: Unremarkable thyroid. Prominent and mildly enlarged mediastinal and hilar lymph nodes are unchanged f rom comparison with subcarinal 10 mm lymph node unchanged. There is no new or progressive adenopathy identified. No pneumothorax, pleural effusion or overt pulmonary edema. Mild bilateral bronchial wall thickening. Small left Bochdalek hernia. Linear subsegmental consolidation with groundglass opacitie s of the inferior segment lingula and right middle lobe. There are no suspicious pulmonary nodules or masses. Mild tracheobronchial secretions. No acute process of the imaged upper abdomen. Unremarkable soft tissues. No acute fracture. Healed ch ronic right-sided rib fractures. IMPRESSION: 1. Bronchial wall thickening suggestive of bronchitis or reactive airway disease. Mild associated tra cheobronchial secretions. 2. No pulmonary emboli. 3. Subsegmental right middle lobe and lingular opacities favor atelectasis. 4. Unchanged likely benign mediastinal and hilar adenopathy 5. No pleural effusion. ACT 112: Negative or not required by law. The above report was generated using voice recognition software. It may contain grammatical, syntax o r spelling errors. Electronically signed by: Bill Mujica M.D. 02/13/2021 6:37 PM
[2021-02-13] MEDS ORDERED: XOPENEX/ATROVENT 1.25mg/0.5MG NEB COMBO NEB SCH (19:00)
[2021-02-13] MEDS: SODIUM CHLORIDE 0.9% 1000ML 1,000 ML IV SCH (19:02)
[2021-02-13] MEDS ORDERED: diphenhydrAMINE 50 MG/ML VIAL IV PRN (19:38)
[2021-02-13 19:55] LABS: Appearance Urine Clear (Clear); Bacteria Urine Automated Negative (Negative); Bilirubin Urine Negative (Negative); Blood Urine 2+ (Negative); Cast Urine Automated 0 /lpf (0-5); Color Urine Yellow; Epithelial Cell Urine Auto 0-5 /lpf (0-5); Glucose Urine UA Negative (Negative); Ketones Urine Negative (Negative); Leukocyte Esterase Urine Negative (Negative); Nitrite Urine Negative (Negative); Protein Urine Negative (Negative); RBC Urine Automated 0-4 /hpf (0-4); Specific Gravity Urine 1.032 (1.000-1.030); Urobilinogen Urine Negative (Negative); WBC Urine Automated 0 /hpf (0-5)
[2021-02-13] MEDS: AZITHROMYCIN 500 MG in DEXTROSE 5% 250 ML IV SCH (20:15)
[2021-02-13] MEDS: methylPREDNISolone 60 MG in SYRINGE 0 ML IV SCH (20:15)
[2021-02-14] MEDS: methylPREDNISolone 60 MG in SYRINGE 0 ML IV SCH ×3 (01:30→20:50)
[2021-02-14] MEDS: SODIUM CHLORIDE 0.9% 1000ML 1,000 ML IV SCH (06:02)
[2021-02-14 06:29] LABS: Albumin Globulin Ratio 1.3 (0.9-2); Albumin Level 3.5 gm/dl (3.4-5.0); BUN Creatinine Ratio 15.9 (10-20); Bilirubin,Total 0.5 mg/dl (0.2-1); Calcium 8.7 mg/dl (8.5-10.1); Creatinine Clr Calc Pharmacy 68.9 ml/min; Est GFR (African American) 84.3 ml/min; Est GFR (Non-African American) 72.8 ml/min; Globulin 2.8 gm/dl (2.5-4.0); Magnesium 2.2 mg/dl (1.8-2.4); Potassium 4.7 mmol/L (3.5-5.1); Total Protein 6.3 gm/dl (6.4-8.2)
[2021-02-14 06:44] LABS: Basophils # (auto) 0.01 K/uL (0-0.2); Basophils % (auto) 0.1 %; Eosinophils # (auto) 0.01 K/uL (0-0.5); Eosinophils % (auto) 0.1 %; Hematocrit (blood only) 39.7 % (42-52); Hemoglobin 14.1 g/dL (14.0-18.0); Immature Granulocytes # (auto) 0.02 K/uL (0.00-0.02); Immature Granulocytes % (auto) 0.3 %; Lymphocytes # (auto) 0.86 K/uL (1.2-3.4); Lymphocytes % (auto) 11.2 %; Mean Corpuscular Hemoglobin 30.7 pg (25-34); Mean Corpuscular Hgb Conc 35.5 g/dL (32-36); Mean Corpuscular Volume 86.5 fL (80-100); Mean Platelet Volume 9.7 fL (7.4-10.4); Monocytes # (auto) 0.12 K/uL (0.11-0.59); Monocytes % (auto) 1.6 %; Neutrophils # (auto) 6.66 K/uL (1.4-6.5); Neutrophils % (auto) 86.7 %; Platelet Count 300 K/uL (130-400); RDW Coefficient of Variation 12.3 % (11.5-14.5); RDW Standard Deviation 38.8 fL (36.4-46.3); Red Blood Count 4.59 M/uL (4.7-6.1); White Blood Count 7.68 K/uL (4.8-10.8)
[2021-02-14] MEDS: ALBUT/IPRATROP 3MG/0.5MG NEB 3 ML VIAL NEB SCH ×2 (07:34→11:52)
[2021-02-14] MEDS: AZITHROMYCIN 500 MG in DEXTROSE 5% 250 ML IV SCH (07:55)
[2021-02-14] MEDS: LORATADINE 10 MG TAB PO SCH (07:55)
--- NOTE | 2021-02-14 10:29 | Electrocardiogram Report ---
Test Reason : Blood Pressure : / mmHG Vent. Rate : 115 BPM Atrial Rate : 115 BPM P-R Int : 122 ms QRS Dur : 102 ms QT Int : 354 ms P-R-T Axes : 078 -48 061 degrees QTc Int : 489 ms Poor data quality, interpretation may be adversely affected Sinus tachycardia Left axis deviation Abnormal ECG When compared with ECG of 01-AUG-2020 16:31, No significant change was found Confirmed by Miguelangel Villafuerte ([id number]) on 02/14/2021 10:29:33 AM Referred By: REFERRED SELF Confirmed By:Eliceo Villafuerte
--- NOTE | 2021-02-14 12:32 | Pulmonary Consultation ---
Date of Consultation February 14, 2021 Assessment & Plan (1) Asthma with severe exacerbation: CT chest 02/13/2021 personally reviewed: Minimal mosaicism right middle lobe, no clear infiltrate Minimal mediastinal lymphadenopathy unchanged. --Asthma exacerbation On Advair HFA 115-21 MCG as an outpatient Absolute eosinophil count as high as 420 back in July 2020 Patient is planned to have PFTs done coming Tuesday. 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 Recommend changing albuterol to levalbuterol given the persistent tachycardia, can decrease the frequency of DuoNeb's to every 8 hours. Continue with Solu-Medrol. Case discussed with Dr. Dupree Please note the above document was generated using voice recognition software. It may contain grammatical, syntax or spelling errors.Any formal questions or concerns about the content, text or information contained within the body of this dictation should be directly addressed to the provider for clarification. (2) Cough: (3) Acute respiratory failure with hypercapnia: (4) Mediastinal lymphadenopathy: History of Present Illness Attending Physician: Priyank Dupree MD History of Present Illness 50-year-old male with past medical history of recently diagnosed asthma, hearing loss, seasonal allergy with allergic rhinitis presented to the hospital with complaints of worsening shortness of breath He failed outpatient prednisone. In the ED patient was found to be in respiratory distress he was given Solu- Medrol which made him feel better. Pulmonary consulted for the same Patient states he is compliant with Advair 2 puffs twice daily. He uses albuterol as well on a daily basis The day he was admitted to the hospital he went out it was humid that is when he had difficulty taking deep breath in. He checked his saturation at home it was in the 90s. He tried to use albuterol but he was not able to take a deep breath in. He had checked the pulse ox again and is in the mid 80s as when he came to the ER. Today he does feel better compared to yesterday. He said that he has been coughing and bringing up phlegm. Denies any hemoptysis. No fever or chills. Does complain of runny nose and urge to clear his throat. Has been taking Claritin for it. Social history: Non-smoker, no illicit drug use. 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 Did not wear mask at that time Has chickens outside. Has had them for approximately 15 years Allergies Allergy/AdvReac Type Severity Reaction Status Date / Time No Known Drug Allergies Allergy Verified 01/20/21 13:55 lam Allergy Unknown Rash Uncoded 01/20/21 13:55 Home Medications Medication Instructions Recorded Confirmed Type loratadine 10 mg tablet 10 mg PO DAILY #30 tab 11/11/20 02/13/21 Rx albuterol sulfate 90 mcg/actuation 2 puff INHALATION .COMPLEX PRN 12/12/20 02/13/21 Rx aerosol inhaler #8.5 g ipratropium 20 mcg-albuterol 100 1 puff INHALATION QID PRN #4 g 12/16/20 02/13/21 Rx mcg/actuation mist for inhalation fluticasone propionate 115 2 puff INHALATION BID #12 g 01/20/21 02/13/21 Rx mcg-salmeterol 21 mcg/actuation HFA inhaler Patient History Medical History (Updated 02/14/21 @ 12:28 by Yordy Reed MD) Corneal abrasion Deaf Hilar lymphadenopathy Mediastinal lymphadenopathy Surgical History S/P wisdom tooth extraction Family History Mother Breast cancer Anemia Uncle Myocardial infarction Father Unknown family medical history Other CHF (congestive heart failure) Denies family history of Colon cancer Ovarian cancer Prostate cancer Social History Smoking Status: Never smoker Second Hand Exposure: No; Hx Alcohol Use: No Hx Substance Use: No Preferred Language: Spanish Communication Ability: Impaired Visual Impairment: No Limitations Hearing Ability: Use of Hearing Aid Senior Administrative Services Officer Required: No Beliefs That Will Affect Care: None marital status: Current Living Situation: Spouse and Other Current Living Situation Comment: adult children x2 current occupational status: employed 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 Feels Safe at Home: Yes Dental Care, Regularly: Yes Physical Activity Frequency: Daily Assistive Devices: None Review of Systems Review of Systems: All systems reviewed & are unremarkable except as noted in HPI & below Physical Exam Physical Exam: Constitutional: No acute distress HEENT: EOMI, PERRLA, has hearing aid Respiratory system: Decreased air entry bilaterally, no wheeze, no rhonchi, no crackles CVS: S1-S2 positive, no murmurs or gallops, tachycardia Abdomen: Soft, nontender, nondistended, positive bowel sounds x4 Extremities: +2 pulses bilaterally radialis/ dorsalis pedis, no cyanosis, no edema Neuro: Awake alert oriented x3 Psych: Normal mood and affect G/U: No Ness Skin: no rashes, warm and dry Lymphatic: no cervical or axillary lymphadenopathy Results & Data Results & Data ([facility]) Vital Signs (Past 12 Hours) Vital Signs Temp Pulse Pulse Pulse Resp BP BP 02/14/21 12:05 36.9 C 120 H 16 117/72 02/14/21 11:52 116 H 18 02/14/21 07:34 106 H 16 02/14/21 07:23 96 H 02/14/21 07:12 36.6 C 106 H 18 112/70 02/14/21 02:36 36.8 C 107 H 18 131/74 02/14/21 00:34 108 H Pulse Ox 02/14/21 12:05 94 02/14/21 11:52 95 02/14/21 07:34 96 02/14/21 07:23 02/14/21 07:12 97 02/14/21 02:36 96 02/14/21 00:34 02/14/21 05:34 02/14/21 05:34 PG Care Time/CCT Total # of Minutes Spent Total Time Spent with Patient: Total time spent is greater than 50% in coordination of care (as documented) at patient's floor/unit and/or counseling patient: Coding Level of Care Code 37230 Inpt Consult Level 4 Diagnoses Asthma with severe exacerbation J45.901 Cough R05 Acute respiratory failure with hypercapnia J96.02 Mediastinal lymphadenopathy R59.0
[2021-02-14] MEDS ORDERED: XOPENEX/ATROVENT 0.63mg/0.5MG NEB COMBO NEB SCH (14:45)
--- NOTE | 2021-02-14 14:52 | Hospitalist Progress Note ---
Date of Service February 14, 2021 Assessment & Plan (1) Asthma with severe exacerbation: Given Solu-Medrol 125 mg IV in ED. Solu-Medrol 60 mg IV BID Switch to levalbuterol/ipratropium nebs per pulm recommendations Continue loratadine 10 mg p.o. daily He has an appointment pending with industrial relations worker Dr. Wright. Will need to reschedule PFTs Would likely benefit from allergy testing. Have available Benadryl 25 mg IV every 4 hours as needed Start montelukast 10mg HS (2) Renal insufficiency: Creatinine 1.50 on admission -> 1.17. UA - blood 2+ but no RBC, CK 131 therefore no rhabdomyolysis Can discontinue IV fluids (3) Mediastinal lymphadenopathy: Mediastinal and hilar lymphadenopathy on previous CTs- ESR 7 CRYS, ANCA, HALIE level pending (4) Hilar lymphadenopathy: (5) Abnormal CT scan of lung: (6) Acute respiratory failure with hypercapnia: Present on admission, now resolved Admission and Anticipated Discharge Date Admission Date: February 13, 2021 Subjective Feels much improved compared to admission. No longer on supplemental oxygen. No shortness of breath at rest, mild on moving around. Appears similar to prior exacerbation where his clinical deterioration and resolution occurs very fast. Responds to steroids quickly. Review of Systems Review of Systems: All systems reviewed & are unremarkable except as noted in HPI & below Physical Exam Constitutional: WD/WN, vitals as above Eyes: + anicteric sclerae; normal pupil size Respiratory: normal respiratory effort; no respiratory distress Auscultation: + diminished lung sounds (posteriorly); no crackles, no rales and no wheezes Cardiovascular: Rate/Rhythm: regular rhythm and + tachycardic Heart Sounds: no murmur Extremities: normal capillary refill; no calf tenderness and no pedal edema Gastrointestinal (Abdomen): normal bowel sounds, soft, nontender, no hepatosplenomegaly Musculoskeletal: no cyanosis or clubbing, extremities motor strength 5/5 Neurologic: moves all extremities and awake; not confused Psychiatric: A+Ox3, euthymic affect Genitourinary: no CVA tenderness Results & Data Results & Data ([facility]) Vital Signs (Past 12 Hours) Vital Signs Temp Pulse Pulse Resp BP Pulse Ox 02/14/21 12:05 36.9 C 120 H 16 117/72 94 02/14/21 11:52 116 H 18 95 02/14/21 07:34 106 H 16 96 02/14/21 07:23 96 H 02/14/21 07:12 36.6 C 106 H 18 112/70 97 PG Care Time/CCT Total # of Minutes Spent Total Time Spent with Patient: Total time spent is greater than 50% in coordination of care (as documented) at patient's floor/unit and/or counseling patient: Coding Level of Care Code 50546 Subseq Hosp Care Lvl 2 Diagnoses Asthma with severe exacerbation J45.901 Renal insufficiency N28.9 Mediastinal lymphadenopathy R59.0 Hilar lymphadenopathy R59.[address] scan of lung R91.8 Acute respiratory failure with hypercapnia J96.02
[2021-02-14] MEDS: LEVALBUTEROL HCL 0.63 MG/3 ML NEB NEB SCH ×2 (15:32→22:22)
[2021-02-14] MEDS: IPRATROPIUM BROMIDE NEB SOLN 0.02% 2.5 ML VIAL INH SCH ×2 (15:32→22:22)
[2021-02-14] MEDS ORDERED: COUGH DROP (SUGAR FREE) LOZ 24 LOZ/1 BOX BUCCAL ONE (19:17)
[2021-02-14] MEDS: guaiFENesin 600 MG TABCR PO SCH (19:57)
[2021-02-14] MEDS ORDERED: MONTELUKAST SODIUM 10 MG TABLET PO SCH (21:00)
[2021-02-15 05:51] LABS: Basophils # (auto) 0.01 K/uL (0-0.2); Basophils % (auto) 0.1 %; Hematocrit (blood only) 40.2 % (42-52); Hemoglobin 13.9 g/dL (14.0-18.0); Immature Granulocytes # (auto) 0.07 K/uL (0.00-0.02); Immature Granulocytes % (auto) 0.5 %; Lymphocytes # (auto) 1.19 K/uL (1.2-3.4); Lymphocytes % (auto) 8.4 %; Mean Corpuscular Hemoglobin 30.5 pg (25-34); Mean Corpuscular Hgb Conc 34.6 g/dL (32-36); Mean Corpuscular Volume 88.2 fL (80-100); Mean Platelet Volume 9.7 fL (7.4-10.4); Monocytes # (auto) 0.85 K/uL (0.11-0.59); Neutrophils # (auto) 12.06 K/uL (1.4-6.5); Platelet Count 314 K/uL (130-400); RDW Coefficient of Variation 12.7 % (11.5-14.5); RDW Standard Deviation 40.7 fL (36.4-46.3); Red Blood Count 4.56 M/uL (4.7-6.1); White Blood Count 14.18 K/uL (4.8-10.8)
[2021-02-15 06:28] LABS: Albumin Level 3.5 gm/dl (3.4-5.0); BUN Creatinine Ratio 20.8 (10-20); Calcium 8.9 mg/dl (8.5-10.1); Est GFR (African American) 107.1 ml/min; Est GFR (Non-African American) 92.4 ml/min; Magnesium 2.3 mg/dl (1.8-2.4); Potassium 4.3 mmol/L (3.5-5.1)
[2021-02-15 06:31] LABS: Albumin Globulin Ratio 1.2 (0.9-2); Bilirubin,Total 0.2 mg/dl (0.2-1); Globulin 2.9 gm/dl (2.5-4.0); Total Protein 6.4 gm/dl (6.4-8.2)
[2021-02-15] MEDS: LEVALBUTEROL HCL 0.63 MG/3 ML NEB NEB SCH ×2 (07:02→14:38)
[2021-02-15] MEDS: IPRATROPIUM BROMIDE NEB SOLN 0.02% 2.5 ML VIAL INH SCH ×2 (07:02→14:38)
[2021-02-15] MEDS ORDERED: AZITHROMYCIN 250 MG TAB PO SCH (09:00)
[2021-02-15] MEDS: methylPREDNISolone 60 MG in SYRINGE 0 ML IV SCH (09:14)
[2021-02-15] MEDS: LORATADINE 10 MG TAB PO SCH (09:14)
[2021-02-15] MEDS: guaiFENesin 600 MG TABCR PO SCH (09:14)
--- NOTE | 2021-02-15 10:59 | Pulmonology Progress Note ---
Date of Service February 15, 2021 Assessment & Plan (1) Asthma with severe exacerbation: CT chest 02/13/2021 personally reviewed: Minimal mosaicism right middle lobe, no clear infiltrate Minimal mediastinal lymphadenopathy unchanged. --Asthma exacerbation On Advair HFA 115-21 MCG as an outpatient Absolute eosinophil count as high as 420 back in July 2020 Patient is planned to have PFTs done coming Tuesday. --Acute hypercapnic respiratory failure Could be from underlying asthma exacerbation Doing better --Mediastinal adenopathy Minimal Nonspecific Unchanged compared to before Plan: On discharge prednisone 40 mg p.o. daily for 3 days followed by 20 mg p.o. daily for 3 days followed by 10 mg p.o. daily. 3 days and then stop. Patient did get significantly tachycardic with albuterol. Xopenex will be better for him. 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 Case discussed with Dr. Dupree Please note the above document was generated using voice recognition software. It may contain grammatical, syntax or spelling errors.Any formal questions or concerns about the content, text or information contained within the body of this dictation should be directly addressed to the provider for clarification. (2) Cough: (3) Acute respiratory failure with hypercapnia: (4) Mediastinal lymphadenopathy: Admission and Anticipated Discharge Date Admission Date: February 13, 2021 Subjective Patient seen and examined at bedside. No acute distress, no adverse events overnight. States that he is feeling better. Denies any chest pain, shortness of breath is improved. No cough. No dizziness. Fair appetite. Review of Systems Review of Systems: All systems reviewed & are unremarkable except as noted in Subjective Physical Exam Physical Exam: Constitutional: No acute distress HEENT: EOMI, PERRLA, has hearing aid Respiratory system: Good air entry bilaterally, no wheeze, no rhonchi, minimal crackles bilateral lower lobes CVS: S1-S2 positive, no murmurs or gallops, tachycardia Abdomen: Soft, nontender, nondistended, positive bowel sounds x4 Extremities: +2 pulses bilaterally radialis/ dorsalis pedis, no cyanosis, no e amanda Neuro: Awake alert oriented x3 Psych: Normal mood and affect G/U: No Ness Skin: no rashes, warm and dry Lymphatic: no cervical or axillary lymphadenopathy Results & Data Results & Data ([facility]) Vital Signs (Past 12 Hours) Vital Signs Temp Pulse Resp BP Pulse Ox 02/15/21 07:50 36.6 C 107 H 16 123/80 93 02/15/21 07:04 103 H 20 97 02/15/21 05:32 02/15/21 05:32 PG Care Time/CCT Total # of Minutes Spent Total Time Spent with Patient: Total time spent is greater than 50% in coordination of care (as documented) at patient's floor/unit and/or counseling patient: Coding Level of Care Code 83840 Subseq Hosp Care Lvl 2 Diagnoses Asthma with severe exacerbation J45.901 Cough R05 Acute respiratory failure with hypercapnia J96.02 Mediastinal lymphadenopathy R59.0
--- NOTE | 2021-02-15 12:40 | Discharge Summary ---
Date of Service February 15, 2021 Admission HPI Per Admitting Provider The patient is a 50-year-old male with a past medical history including asthma, abnormal lung CT scan, hearing loss, rhinitis who presents with symptoms of severe shortness of breath not responsive to prednisone. In the emergency department, he was acutely short of breath, was placed on BiPAP initially, but had to take it off because it was too much pressure. After removing the BiPAP and having received Solu-Medrol 125 IV along with DuoNebs, patient was satting in the mid 90s on nasal cannula and more comfortable. Principal Diagnosis Acute asthma exacerbation Discharge Exam Constitutional WD/WN, vitals as above Eyes + anicteric sclerae; normal pupil size Respiratory normal respiratory effort; no respiratory distress Auscultation: + diminished lung sounds (posteriorly); no crackles, no rales and no wheezes Cardiovascular Rate/Rhythm: regular rhythm and + tachycardic Heart Sounds: no murmur Extremities: normal capillary refill; no calf tenderness and no pedal edema Gastrointestinal (Abdomen) normal bowel sounds, soft, nontender, no hepatosplenomegaly Musculoskeletal no cyanosis or clubbing, extremities motor strength 5/5 Neurologic moves all extremities and awake; not confused Psychiatric A+Ox3, euthymic affect Discharge Data Allergies Allergy/AdvReac Type Severity Reaction Status Date / Time No Known Drug Allergies Allergy Verified 02/20/21 10:17 lam Allergy Unknown Rash Uncoded 02/20/21 10:17 Consultations 02/13/21 16:12 ED Decision to Admit Stat 02/13/21 18:31 Consult Pulmonology Routine Ordered Studies 02/13/21 16:25 CT angio chest PE protocol Stat IMPRESSION: 1. Bronchial wall thickening suggestive of bronchitis or reactive airway disease. Mild associated tracheobronchial secretions. 2. No pulmonary emboli. 3. Subsegmental right middle lobe and lingular opacities favor atelectasis. 4. Unchanged likely benign mediastinal and hilar adenopathy 5. No pleural effusion. Hospital Course (1) Asthma with severe exacerbation: Tor Love is a 50 year old male admitted to [facility] from February 13-2020 due hypoxia and shortness of breath. He was diagnosed with acute asthma exacerbation treated with intravenous steroids, azithromycin and levalbuterol/ipratropium nebulizers with very quick resolution of your symptoms given that he required BiPAP in the emergency room and was on room air the following day.. On review by pulmonology recommended increasing your Advair dose, adding montelukast and switching Combivent for Xopenex inhaler (due tachycardia). He will be discharged on a long tapering course of prednisone and finish azithromycin. He will follow up with pulmonology for ongoing management. 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 You were diagnosed with acute asthma exacerbation treated with intravenous steroids, azithromycin (antibiotic) and levalbuterol/ipratropium nebulizers which quick resolution of your symptoms. On review by pulmonology recommended increasing your Advair dose, adding montelukast (a mast cell stabilizer) and switching Combivent for Xopenex inhaler (due to elevated heart rate). You will be discharged on a tapering course of steroids (prednisone) and two further days of azithromycin to finish a 5 day course. Please follow up with your head of music as previously arranged but recommend cancelling previously arrange lung function tests as these will not be member service representative of your baseline state. Kind regards, Dr Priyank Dupree Pending Studies at Discharge: Yes Stand-Alone Forms: My [facility], Smoking Cessation Medications and DC Order Prescriptions: New Advair HFA 230-21 mcg/actuation HFA aerosol inhaler 2 inh inhalation BID Qty: 12 RF: 0 prednisone 10 mg tablet See Rx Instructions .ROUTE .COMPLEX Qty: 21 RF: 0 guaifenesin 600 mg tablet extended release 12hr 1,200 mg PO BID Qty: 30 RF: 0 levalbuterol tartrate 45 mcg/actuation HFA aerosol inhaler 2 inh inhalation Q4H PRN (Reason: shortness of breath) Qty: 15 RF: 0 montelukast [Singulair] 10 mg tablet 10 mg PO HS Qty: 30 RF: 0 Continued loratadine 10 mg tablet 10 mg PO DAILY Qty: 30 RF: 5 Discontinued albuterol sulfate [ProAir HFA] 90 mcg/actuation HFA aerosol inhaler 2 puff inhalation .COMPLEX PRN (Reason: shortness of breath or wheezing) Qty: 8.5 RF: 3 Advair HFA 115-21 mcg/actuation HFA aerosol inhaler 2 puff inhalation BID Qty: 12 RF: 2 Combivent Respimat 20-100 mcg/actuation mist 1 puff inhalation QID PRN (Reason: shortness of breath or wheezing) Qty: 4 RF: 2 Discharge Orders: Discharge Order (Routine); Ordered 02/15/21 Ordered By: Priyank Dupree Admission Data Admit Date/Time: 02/13/21 17:04 Attending Provider: Priyank Dupree Admit Provider: Rafiq Marr Primary Care Provider: Patti Cárdenas Other Providers: Yordy Reed Other Interventions: Discharge Summary Assessment (RN) Last Done: 02/15/21 13:13 Coding Level of Care Code D/C DAY MANAGEMENT >30 MINS Diagnoses Asthma with severe exacerbation J45.901 Renal insufficiency N28.9 Mediastinal lymphadenopathy R59.0 Hilar lymphadenopathy R59.[address] scan of lung R91.8 Acute respiratory failure with hypercapnia J96.02
[2021-02-19 12:57] LABS: ANCA Screen Negative (Negative); Angiotensin Converting Enzyme 16 U/L (9-67); Anti Nuclear Antibody Screen POSITIVE (NEGATIVE); Myeloperoxidase Ab <1.0 AI (<1.0); Proteinase-3 AB <1.0 AI (<1.0)
[2021-02-20 14:48] LABS: ANA Titer 1:40 titer
== END 2021-02-15 15:22 | disposition home or self-care (01) | DRG 202 ==
LOC: ED 15:04 → SUATTDRO 17:04 → 2S 17:04 → 3E 02-14 16:15
DX: R59.0 Localized enlarged lymph nodes; N28.9 Disorder of kidney and ureter, unspecified; J45.901 Unspecified asthma with (acute) exacerbation; J96.02 Acute respiratory failure with hypercapnia; H91.90 Unspecified hearing loss, unspecified ear